=== PATIENT | male | born 1965 | race Caucasian/White ===

== ENCOUNTER 2016-07-13 18:19 | Emergency (ER) | payer MEDICARE, OTHER | END 2016-07-13 22:33 | disposition home or self-care (01) | LOC: ER 18:19 | CPT/HCPCS: 36415; 80053; 80185; 81001; 82947; 85025 ==

== ENCOUNTER 2016-07-25 19:20 | Emergency (ER) | payer MEDICARE, OTHER ==
[2016-07-26] MEDS ORDERED: Hydrocodone/APAP 10/325 MG TAB ONE (01:42)
== END 2016-07-26 02:16 | disposition home or self-care (01) ==
LOC: ER 19:20
DX: R56.9 Unspecified convulsions (principal); S22.32XA Fracture of one rib, left side, initial encounter for closed fracture; S27.9XXA Injury of unspecified intrathoracic organ, initial encounter; W19.XXXA Unspecified fall, initial encounter; Z79.899 Other long term (current) drug therapy; Z79.82 Long term (current) use of aspirin; Z87.891 Personal history of nicotine dependence
CPT/HCPCS: 36415; 80053; 80185; 81003; 82947; 85025

== ENCOUNTER 2016-07-29 12:05 | Emergency (ER) | payer MEDICARE, OTHER ==
[2016-07-29] MEDS ORDERED: CYCLOBENZAPRINE 10 MG TAB ONE (12:44)
[2016-07-29] MEDS ORDERED: ONDANSETRON ODT 4 MG TAB ONE (12:44)
[2016-07-29] MEDS ORDERED: DILAUDID 1 MG/ML AMP ONE (12:44)
== END 2016-07-29 14:51 | disposition home or self-care (01) ==
LOC: ER 12:05
DX: J18.9 Pneumonia, unspecified organism (principal); S22.32XA Fracture of one rib, left side, initial encounter for closed fracture; Z79.82 Long term (current) use of aspirin; Z79.899 Other long term (current) drug therapy; Z87.891 Personal history of nicotine dependence
CPT/HCPCS: 71020; 96372; 99283; J1170; 94799